=== PATIENT | male | born 1935 | race Two or more races ===

== ENCOUNTER 2016-11-18 09:21 | Emergency (ER) | payer MEDICARE ==
[2016-11-18 09:34] VITALS: TEMP 98.4; BMI 33.4
--- NOTE | 2016-11-18 09:49 | EDPRACDOC ---
- General Information Chief Complaint: Chest Pain Stated Complaint: CP/ LEFT ARM NUMBNESS Time Seen by Provider: 11/18/16 09:45 Information Source: Patient, [employer] Mode of Arrival: Car Home Medications: Home Medications Albuterol Sulfate [Proair Hfa] 2 puff INH Q6H PRN #1 inhaler 01/15/15 Budesonide/Formoterol Fumarate [Symbicort 80-4.5 Mcg Inhaler] 2 puff INH BID Naproxen 500 mg PO BID PRN 11/18/16 Allergies/Adverse Reactions: Allergies Allergy/AdvReac Type Severity Reaction Status Date / Time No Known Allergies Allergy Verified 11/18/16 09:34 - History of Present Illness Onset: 3 DAYS HPI: LEFT CHEST PAIN RADIATES AROUND TO THE BACK AND LEFT SHOULDER PAIN FOR 3 DAYS, CONSTANT. NO MODIFYING FACTORS. PAIN 08/08. NONSMOKER. NORMAL CHOL. NO HTN. MILD HEADACHE. NO H/O STRESS TEST OR HEART CATH. TAKING TYLENOL. THEN STARTED ON NAPROXEN. BUT HASN'T TAKE NAPROXEN FOR THE CHEST/SHOULDER PAIN. ED Past Medical History - History Reviewed Yes Nurses notes reviewed and agree except as marked - Patient Medical History Respiratory History: Reports: COPD Musculoskeletal History: Reports: Arthritis (BILATERAL KNEE) - Family Medical History Denies: Hypertension, Diabetes, Stroke, Cardiac Disorders - Social Medical History Smoking Status: Former smoker EDM Review of Systems - Review of Systems ROS Negative Except as Marked: Yes All systems reviewed and were negative except as marked - Physical Exam Constitutional: Alert (Awake), No apparent distress Oriented to: Time, Person, Place Last recorded Vital Signs: Last Vital Signs Temp 98.4 F 11/18/16 09:27 Pulse 77 11/18/16 09:27 Resp 18 11/18/16 09:27 BP 148/75 11/18/16 09:27 Pulse Ox 98 11/18/16 09:27 Oxygen Pulse Oxygen Saturation 98 O2 Device Room Air Oxygen Flow Rate Fraction of Inspired Oxygen ( FIO2) - HEENT Head: Normal ( normocephalic) Eye Exam: Normal (PERRL, EOMI, Sclera white) Oropharynx: Normal (Pharynx:Moist without exudate,Gums-no swelling) Nose: No Symptoms Reported (septum midline) Neck: Normal (FROM, trachea at midline) - Respiratory/Cardiovascular Respiratory: Normal - CTA (BBS clear to auscultation without adventitious sounds ) Cardiovascular: Normal (RRR without murmur, gallop or rub) - GI Auscultation: Normal (NABS) Palpation: Normal (Soft,No rebound or guarding, non distended) Tenderness: Non tender Naik's Sign: Negative - Musculoskeletal Back: Normal (Non-Tender) Extremities: Normal (Normal tone, Pulses 2+ No cyanosis or edema, FROM) - Integumentary Skin: Normal, Warm, Dry Lymphatics: Normal (no adenopathy) - Neurologic Memory Impaired: Normal Motor Function: Normal (Normal tone, Pulses 2+ No cyanosis or edema, FROM) Cranial Nerve: Normal (CN II-X11 intact sensation, strength 5/5) Cerebellar: Normal Mood Description: Normal Perception: Normal ED Chest Pain Exam - Respiratory/Cardiovascular Respiratory: Normal - CTA Chest Palpation: Tender, Reproduces Pain (LEFT ANTERIOR AND POSTERIOR CHEST PAIN , LEFT SHOULDER TTP. FULL ROM UPPER EXT.) - Action ASA given in the ED: Yes - Results 11/18/16 09:55 11/18/16 09:55 - EKG EKG #1 EKG Time: 09:26 -: Yes EKG interpreted by me Rate: bpm: 75 [place]: Normal Rhythm: NSR Block: None Hypertrophy: None ST: Nonsp Comments: ABNORMAL EKG Decision Time to Discharge: 11:44 - Departure Yes I personally saw and evaluated the patient. Disposition: Home Condition: Stable Final Diagnosis: Chest wall pain Instructions: Chest Wall Pain Education/Counseling Given To: Patient, Family Member Education/Counseling Given Regarding: Diagnosis Referrals: None,No Provider [NonStaff] - One Week Additional Instructions: RESTART NAPROXEN. ADD TYLENOL NEEDED.
[2016-11-18] MEDS ORDERED: ASPIRIN (CHEWABLE) 81 MG TAB PO ONE (09:56)
[2016-11-18 10:11] LABS: AUTOMATED BASOPHIL 0.3 % (0-2); AUTOMATED EOSINOPHIL 1.9 % (0-5); AUTOMATED LYMPH 46.7 % (17-44); AUTOMATED MONOCYTE 8.1 % (3-10); MPV 9.3 fL (7.4-10.4)
[2016-11-18 10:24] LABS: PARTIAL THROMB. TIME 25.5 SEC (22-35)
[2016-11-18 10:27] LABS: BLOOD UREA NITROGEN 20 MG/DL (9-20); CALC CORRECTED 9.2 MG/DL (8.4-10.2); CALCULATED OSMOLALITY 273 MOs/Kg (270-290); CHLORIDE 105 mEq/L (98-107); GLUCOSE 85 MG/DL (70-99); SODIUM LEVEL 141 mEq/L (137-146); TOTAL PROTEIN 7.5 G/DL (6.3-8.2)
--- NOTE | 2016-11-18 10:43 | DIRPT ---
CLINICAL DATA: Chest pain EXAM: PORTABLE CHEST 1 VIEW COMPARISON: 09/27/2016 FINDINGS: Interstitial coarsening which is above baseline and could be congestive or bronchitic. No definitive focal consolidation/airspace disease. Chronic cardiomegaly. IMPRESSION: Congestive or bronchitic interstitial coarsening that is above prior baseline. Electronically Signed By: Curt Davenport M.D. On: 11/18/2016 10:40
[2016-11-18 12:00] VITALS: BP 113/64; PULSE 78
== END 2016-11-18 11:55 | disposition home or self-care (01) ==
LOC: ED 09:21
DX: R07.89 Other chest pain (principal)
CPT/HCPCS: 36415; 71010; 80053; 83880; 84484; 85025; 85610; 85730; 93005; 99285; A9270; J3490